=== PATIENT | female | born 1975 | race Caucasian/White ===

== ENCOUNTER 2017-05-29 12:09 | Inpatient (IN) | payer BC ==
[2017-05-29] MEDS ORDERED: ACETAMINOPHEN TAB 500 MG TAB PO STA (13:18)
[2017-05-29] MEDS ORDERED: SODIUM CHLORIDE 0.9% 500 ML IV STA (13:19)
--- NOTE | 2017-05-29 13:21 | ED ---
General Adult HPI - General Chief complaint: Abdominal Pain Stated complaint: Abd/Back Pain Time Seen by Provider: 05/29/17 12:30 Source: patient, RN notes reviewed Mode of arrival: ambulatory Limitations: no limitations - History of Present Illness Initial comments: This is a 42-year-old female presents emergency Department complaining of epigastric abdominal pain which radiates to her back per patient states she has a history of pancreatitis and hasn't had it for a year but this feels very similar to her Ybarra taste in the past. Patient denies any vomiting but states she is mildly nauseated. Patient states the pain started last evening but it's a little less today but she was concerned that maybe it would get worse so she wanted to come in and be evaluated. Patient denies any fever or chills. Patient denies any chest pain difficulty breathing shortness of breath. Patient denies any dysuria hematuria urinary frequency. - Related Data Home Medications Medication Instructions Recorded Confirmed Ibuprofen [Motrin] 600 mg PO Q6HR PRN 03/10/16 05/29/17 Frovatriptan Succinate [Frova] 2.5 mg PO DAILY PRN 05/29/17 05/29/17 Topiramate [Topamax] 25 mg PO HS 05/29/17 05/29/17 Allergies Allergy/AdvReac Type Severity Reaction Status Date / Time amoxicillin [Amoxicillin] AdvReac Vomiting Verified 05/29/17 13:24 morphine AdvReac Vomiting Verified 05/29/17 13:24 Review of Systems ROS Statement: Those systems with pertinent positive or pertinent negative responses have been documented in the HPI. ROS Other: All systems not noted in ROS Statement are negative. Past Medical History Past Medical History: Asthma, Pneumonia Additional Past Medical History / Comment(s): migraine, pancreatits History of Any Multi-Drug Resistant Organisms: None Reported Past Surgical History: Appendectomy, Uterine Ablation Additional Past Surgical History / Comment(s): whipple Past Anesthesia/Blood Transfusion Reactions: Previous Problems w/ Anesthesia, Postoperative Nausea & Vomiting (PONV) Additional Past Anesthesia/Blood Transfusion Reaction / Comment(s): difficulty waking up, low heart rate Past Psychological History: No Psychological Hx Reported Smoking Status: Never smoker Past Alcohol Use History: Rare Past Drug Use History: None Reported - Past Family History Mother Additional Family Medical History / Comment(s): paternal grandmother from a heart attack. maternal grandmother also had heart problems General Exam - General Exam Comments Initial Comments: GENERAL: Patient is well-developed and well-nourished. Patient is nontoxic and well- hydrated and is in mild distress. ENT: Neck is soft and supple. No significant lymphadenopathy is noted. Oropharynx is clear. Moist mucous membranes. Neck has full range of motion without eliciting any pain. EYES: The sclera were anicteric and conjunctiva were pink and moist. Extraocular movements were intact and pupils were equal round and reactive to light. Eyelids were unremarkable. PULMONARY: Unlabored respirations. Good breath sounds bilaterally. No audible rales rhonchi or wheezing was noted. CARDIOVASCULAR: There is a regular rate and rhythm without any murmurs gallops or rubs. ABDOMEN: Patient has tenderness in epigastric region SKIN: Skin is clear with no lesions or rashes and otherwise unremarkable. NEUROLOGIC: Patient is alert and oriented x3. Cranial nerves II through XII are grossly intact. Motor and sensory are also intact. Normal speech, volume and content. Symmetrical smile. MUSCULOSKELETAL: Normal extremities with adequate strength and full range of motion. LYMPHATICS: No significant lymphadenopathy is noted PSYCHIATRIC: Normal psychiatric evaluation. Normal interpersonal interactions appears functionally intact in deals appropriately with others. No signs of depression. No signs of anxiety. Limitations: no limitations Course Vital Signs 05/29/17 12:26 Temperature 98.3 F Pulse Rate 106 H Respiratory 18 Rate Blood Pressure 114/73 O2 Sat by Pulse 99 Oximetry Medical Decision Making - Lab Data Result diagrams: 05/29/17 13:06 05/29/17 13:06 Lab Results 05/29/17 05/29/17 05/29/17 Range/Units 13:06 13:06 13:06 WBC 8.0 (3.8-10.6) k/uL RBC 4.39 (3.80-5.40) m/uL Hgb 14.2 (11.4-16.0) gm/dL Hct 40.4 (34.0-46.0) % MCV 92.0 (80.0-100.0) fL MCH 32.2 (25.0-35.0) pg MCHC 35.0 (31.0-37.0) g/dL RDW 12.6 (11.5-15.5) % Plt Count 198 (150-450) k/uL Neutrophils % 69 % Lymphocytes % 22 % Monocytes % 6 % Eosinophils % 2 % Basophils % 1 % Neutrophils # 5.5 (1.3-7.7) k/uL Lymphocytes # 1.8 (1.0-4.8) k/uL Monocytes # 0.5 (0-1.0) k/uL Eosinophils # 0.1 (0-0.7) k/uL Basophils # 0.0 (0-0.2) k/uL Sodium 142 (137-145) mmol/L Potassium 4.5 (3.5-5.1) mmol/L Chloride 108 H (98-107) mmol/L Carbon Dioxide 25 (22-30) mmol/L Anion Gap 9 mmol/L BUN 14 (7-17) mg/dL Creatinine 0.88 (0.52-1.04) mg/dL Est GFR (MDRD) Af Amer >60 (>60 ml/min/1.73 sqM) Est GFR (MDRD) Non-Af >60 (>60 ml/min/1.73 sqM) Glucose 87 (74-99) mg/dL Calcium 9.3 (8.4-10.2) mg/dL Total Bilirubin 0.7 (0.2-1.3) mg/dL AST 23 (14-36) U/L ALT 20 (9-52) U/L Alkaline Phosphatase 44 (38-126) U/L Total Protein 6.8 (6.3-8.2) g/dL Albumin 4.4 (3.5-5.0) g/dL Amylase 958 H* (30-110) U/L Lipase 7176 H (23-300) U/L Urine Color Yellow Urine Appearance Turbid H (Clear) Urine pH 8.0 (5.0-8.0) Ur Specific [place] 1.019 (1.001-1.035) Urine Protein Trace H (Negative) Urine Glucose (UA) Negative (Negative) Urine Ketones Negative (Negative) Urine Blood Negative (Negative) Urine Nitrite Negative (Negative) Urine Bilirubin Negative (Negative) Urine Urobilinogen <2.0 (<2.0) mg/dL Ur Leukocyte Esterase Negative (Negative) Urine Bacteria Rare H (None) /hpf Urine Mucus Rare H (None) /hpf Urine Yeast (Budding) Many H (None) /hpf Disposition Clinical Impression: Acute pancreatitis Disposition: ADMITTED IP TO THIS HOSP Referrals: Michele Proctor MD [Primary Care Provider] - 1-2 days Time of Disposition: 14:53
[2017-05-29 13:40] LABS: Basophils % (A) 1 %; CH 31.8; CHCM 34.7; Eosinophils # (A) 0.1 k/uL (0-0.7); Eosinophils % (A) 2 %; HCT 40.4 % (34.0-46.0); HDW 2.49; HGB 14.2 gm/dL (11.4-16.0); Luc # (Auto) 0.07; Luc % (Auto) 1; Lymphocytes # (A) 1.8 k/uL (1.0-4.8); Lymphocytes % (A) 22 %; MCH 32.2 pg (25.0-35.0); Mean Platelet Volume 7.3; Monocytes # (A) 0.5 k/uL (0-1.0); Monocytes % (A) 6 %; Neutrophils # (A) 5.5 k/uL (1.3-7.7); Neutrophils % (A) 69 %; RBC 4.39 m/uL (3.80-5.40); RDW 12.6 % (11.5-15.5); WBC (Perox) 8.38
[2017-05-29 13:48] LABS: Appearance,Urine Turbid (Clear); Bacteria,Urine Rare /hpf; Bilirubin,Urine Negative (Negative); Glucose,Urine (UA) Negative (Negative); Ketones,Urine Negative (Negative); Leukocyte Esterase,Urine Negative (Negative); Mucus,Urine Rare /hpf; Nitrite,Urine Negative (Negative); Particle Count 10918; Protein,Urine Trace (Negative); Specific Gravity,Urine 1.019 (1.001-1.035); UA Billing (MACRO vs. MICRO) MICRO; Urobilinogen,Urine <2.0 mg/dL (<2.0)
[2017-05-29 13:50] LABS: ALT 20 U/L (9-52); AST 23 U/L (14-36); Alkaline Phosphatase 44 U/L (38-126); Anion Gap 9 mmol/L; Blood Urea Nitrogen 14 mg/dL (7-17); Calcium 9.3 mg/dL (8.4-10.2); Carbon Dioxide 25 mmol/L (22-30); Chloride 108 mmol/L (98-107); Glucose 87 mg/dL (74-99); Non-African American GFR(MDRD) >60 (>60 ml/min/1.73 sqM); Potassium 4.5 mmol/L (3.5-5.1); Sodium 142 mmol/L (137-145); Total Bilirubin 0.7 mg/dL (0.2-1.3); Total Protein 6.8 g/dL (6.3-8.2)
[2017-05-29 14:06] LABS: Amylase 958 U/L (30-110)
[2017-05-29] MEDS ORDERED: SODIUM CHLORIDE 0.9% 1,000 ML IV ONE (14:54)
[2017-05-29] MEDS ORDERED: HYDROmorphone 1 MG/ML 1 ML SYRINGE IVP PRN (15:10)
[2017-05-29] MEDS ORDERED: ONDANSETRON 4 MG/2 ML VIAL IVP PRN (15:10)
[2017-05-29 15:36] VITALS: BMI 20.7
[2017-05-29] MEDS ORDERED: ACETAMINOPHEN TAB 500 MG TAB PO PRN (16:54)
[2017-05-29] MEDS ORDERED: Acetaminophen-Codeine 300-30mg TAB PO PRN (17:51)
[2017-05-29 18:35] LABS: INR 1.1 (<1.2); Prothrombin Time 10.7 sec (9.0-12.0)
[2017-05-29] MEDS: ESOMEPRAZOLE 20 MG in SODIUM CHLORIDE 0.9% 50 ML IVPB SCH (18:54)
--- NOTE | 2017-05-29 19:14 | P.CNPUL ---
History of Present Illness Consult date: 05/29/17 Requesting physician: Jodi Srivastava Chief complaint: acute pancreatitis History of present illness: This is a 42-year-old female, quite familiar to my service, patient is known to have history of chronic pancreatitis. She was seen by a pancreatic surgeon at [facility] 3 years back, and she was found to have some pancreatic lesions which were benign but felt to be precursors for potential malignancy. Patient underwent Whipple's procedure, and the purpose of the Whipple's was to prevent recurrent chronic pancreatitis, and to excise the suspicious lesions on the pancreas which were again benign but potentially transformed to malignancy in the future. Since then, the patient always had elevated enzymes, but for the last year and a half she has been relatively asymptomatic. Patient presented to the ER yesterday planing of 1 day history of severe abdominal pain , no nausea, no vomiting, no fever, no chills, no shortness of breath, no dysuria, no frequency, no hematuria, no diarrhea, but the patient is known to have history of chronic constipation. Her migraine cephalgia has been acting up and she was recently seen by a neurologist who recommended Maxalt however her prescription has not been filled yet. Today the patient is complaining of abdominal pain and symptoms of migraine cephalgia. Otherwise patient is relatively asymptomatic. Review of Systems 14 point review of systems were obtained, please refer to pertinent positives and negatives as per HPI. Past Medical History Past Medical History: Asthma, Pneumonia Additional Past Medical History / Comment(s): migraine, pancreatitis History of Any Multi-Drug Resistant Organisms: None Reported Past Surgical History: Appendectomy, Uterine Ablation Additional Past Surgical History / Comment(s): whipple Past Anesthesia/Blood Transfusion Reactions: Previous Problems w/ Anesthesia, Postoperative Nausea & Vomiting (PONV) Additional Past Anesthesia/Blood Transfusion Reaction / Comment(s): difficulty waking up, low heart rate Past Psychological History: No Psychological Hx Reported Smoking Status: Never smoker Past Alcohol Use History: Rare Past Drug Use History: None Reported - Past Family History Mother Additional Family Medical History / Comment(s): paternal grandmother from a heart attack. maternal grandmother also had heart problems Medications and Allergies Home Medications Medication Instructions Recorded Confirmed Type Ibuprofen [Motrin] 600 mg PO Q6HR PRN 03/10/16 05/29/17 History Topiramate [Topamax] 25 mg PO HS 05/29/17 05/29/17 History Allergies Allergy/AdvReac Type Severity Reaction Status Date / Time amoxicillin [Amoxicillin] AdvReac Vomiting Verified 05/29/17 13:24 morphine AdvReac Vomiting Verified 05/29/17 13:24 Physical Exam Vitals: Vital Signs Temp Pulse Pulse Resp BP BP Pulse Ox 05/29/17 15:43 98.1 F 70 18 118/57 99 05/29/17 15:00 98 F 98 18 106/61 98 05/29/17 12:26 98.3 F 106 H 18 114/73 99 Intake and Output 05/29/17 05/29/17 05/29/17 06:59 14:59 22:59 Intake Total 510 Balance 510 Intake: Amount of Fluid Infused ( 510 ml) Other: Voiding Method Toilet Weight 59.874 kg 59.874 kg Patient Weight 05/30/17 06:59 Weight 59.874 kg Physical Exam: Revealed a 42-year-old female in no distress. HEENT:[Neck is supple.] [No neck masses.] [No thyromegaly.] [No JVD.] Chest: [Clear throughout, no crackles, no rhonchi, no wheezes.] Cardiac Exam: [Normal S1 and S2, no S3 gallop, no murmur.] Abdomen: [Soft, slightly tender to palpation,, no megaly, no rebound, no guarding, Extremities: [No clubbing, no edema, no cyanosis.] Neurological Exam: [No focal neurologic deficit.] Results - Laboratory Findings CBC and BMP: 05/29/17 13:06 05/29/17 13:06 PT/INR, D-dimer PT 10.7 sec (9.0-12.0) 05/29/17 18:14 INR 1.1 (<1.2) 05/29/17 18:14 Abnormal lab findings: Abnormal Labs 05/29/17 05/29/17 13:06 13:06 Chloride 108 H Amylase 958 H* Lipase 7176 H Urine Appearance Turbid H Urine Protein Trace H Urine Bacteria Rare H Urine Mucus Rare H Urine Yeast (Budding) Many H Assessment and Plan Plan: Impression: 1 acute, on chronic pancreatitis, recurrent. 2 history of Whipple's procedure 3 chronic migraine cephalgia 4 history of mild intermittent bronchial asthma Recommendation: Agree with the present treatment plan, mostly supportive and conservative measures, no need for CT of the abdomen at this point, patient is scheduled to have an MRI in the near future at [facility], and this will be done on outpatient basis. However I believe on ultrasound of the abdomen may be indicated and will continue to follow. Keep patient nothing by mouth for now, continue to monitor her enzymes, possible discharge planning in the next 2 days. Time with Patient: Greater than 30
[2017-05-29] MEDS: KETOROLAC 30 MG/ML 1 ML VIAL IVP PRN (19:44)
[2017-05-29] MEDS ORDERED: TOPIRAMATE 25 MG TAB PO SCH (21:00)
[2017-05-29] MEDS: HEPARIN SODIUM,PORCINE 5,000 UNIT/ML 1 ML VIAL SQ SCH (21:30)
[2017-05-29] MEDS ORDERED: MAXALT 10 MG PO PRN (23:41)
[2017-05-30] MEDS: SODIUM CHLORIDE 0.9% 1,000 ML IV SCH ×3 (05:32→10:19)
[2017-05-30 07:33] LABS: Basophils % (A) 1 %; CH 31.6; CHCM 33.4; Eosinophils # (A) 0.2 k/uL (0-0.7); Eosinophils % (A) 4 %; HCT 34.7 % (34.0-46.0); HDW 2.48; HGB 11.6 gm/dL (11.4-16.0); Luc # (Auto) 0.11; Luc % (Auto) 2; Lymphocytes # (A) 2.1 k/uL (1.0-4.8); Lymphocytes % (A) 44 %; MCH 31.8 pg (25.0-35.0); MCHC 33.5 g/dL (31.0-37.0); MCV 94.8 fL (80.0-100.0); Mean Platelet Volume 7.2; Monocytes # (A) 0.3 k/uL (0-1.0); Monocytes % (A) 6 %; Neutrophils # (A) 2.2 k/uL (1.3-7.7); Neutrophils % (A) 44 %; RBC 3.66 m/uL (3.80-5.40); RDW 12.7 % (11.5-15.5); WBC 4.9 k/uL (3.8-10.6); WBC (Perox) 5.03
[2017-05-30 07:55] LABS: ALT 23 U/L (9-52); AST 16 U/L (14-36); Alkaline Phosphatase 35 U/L (38-126); Amylase 270 U/L (30-110); Anion Gap 7 mmol/L; Blood Urea Nitrogen 12 mg/dL (7-17); Calcium 8.2 mg/dL (8.4-10.2); Carbon Dioxide 19 mmol/L (22-30); Chloride 114 mmol/L (98-107); Cholesterol 137 mg/dL (<200); Glucose 63 mg/dL (74-99); HDL Cholesterol 45 mg/dL (40-60); Non-African American GFR(MDRD) >60 (>60 ml/min/1.73 sqM); Potassium 3.7 mmol/L (3.5-5.1); Sodium 140 mmol/L (137-145); Total Bilirubin 0.6 mg/dL (0.2-1.3); Total Protein 5.2 g/dL (6.3-8.2); Triglycerides 62 mg/dL (<150)
--- NOTE | 2017-05-30 08:53 | US ---
EXAMINATION TYPE: US abdomen complete DATE OF EXAM: 05/30/2017 COMPARISON: CT 11/09/2014 & US 11/08/2014 CLINICAL HISTORY: pancreatitis/recurrent. Recurrent pancreatitis, history of whipple procedure and ap pendectomy EXAM MEASUREMENTS: Liver Length: 13.9 cm Gallbladder Wall: surgically absent CBD: 0.3 cm Spleen: 9.9 cm Right Kidney: 10.0 x 4.7 x 5.1 cm Left Kidney: 10.2 x 4.9 x 4.8 cm Pancreas: wnl in its visualized portions. Liver: wnl Gallbladder: surgically absent Evidence for sonographic Aggarwal's sign: yes CBD: visualized portions wnl, limited by overlying bowel gas Spleen: visualized portions wnl, limited by rib shadowing and overlying bowel gas Right Kidney: visualized portions wnl, inferior pole limited by overlying bowel gas Left Kidney: visualized portions wnl, limited by rib shadowing and overlying bowel gas Upper IVC: wnl Abd Aorta: wnl There is no ascites. The liver is homogenous. The intrahepatic portion of the IVC and proximal abdominal aorta are within normal limits, common hepatic duct is unremarkable. The visualized portions of the pancreas are cassius ogenous. The spleen is unremarkable. Kidneys are symmetric and free of hydronephrosis. No renal le sions are seen. IMPRESSION: No evident complication of pancreatitis, status post cholecystectomy
--- NOTE | 2017-05-30 09:51 | HP ---
CHIEF COMPLAINT: Abdominal pain. HISTORY OF PRESENT ILLNESS: This 42-year-old woman with the past medical history of asthma, history of migraines, recurrent pancreatitis post Whipple's procedure being followed by Dr. Proctor in the outpatient setting, is admitted with abdominal pain in upper abdomen and back area. The patient had a migraine recently. The patient is being by [facility] and patient also had IPMN. The patient was also seen by neurology recently and Topamax and Maxalt was also recommended recently. No fever or rigors. History of headache. No loss of consciousness or seizures. PAST MEDICAL HISTORY: History of recurrent pancreatitis, asthma, pneumonia, history of migraine, history of IPMN with Whipple's procedure. MEDICATIONS PRIOR TO ADMISSION: 1. Topamax 25 mg q.h.s. 2. Motrin 600 mg q6h p.r.n. ALLERGIES: AMOXICILLIN, MORPHINE. FAMILY HISTORY: Heart disease in paternal and maternal grandmothers. SOCIAL HISTORY: The patient is a teacher. Occasional alcohol, no history of smoking. REVIEW OF SYSTEMS: ENT: No diminished hearing or diminished vision. CARDIOVASCULAR: No angina, no palpitations. RESPIRATORY: No cough or hemoptysis. GI: As mentioned earlier. : No dysuria. NERVOUS SYSTEM: No numbness or weakness. Alert and oriented. MUSCULOSKELETAL: As mentioned earlier. HEMATOLOGY: None. ENDOCRINE: No diabetes or hypothyroidism. CONSTITUTIONAL: As mentioned earlier. PSYCHIATRIC: As mentioned earlier. PHYSICAL EXAMINATION: Alert and oriented x3. Pulse is 70, blood pressure 118/ 57, respirations 18, temperature 98.0, pulse ox 99% on room air. HEENT: Conjunctivae normal. NECK: No JVD. CARDIOVASCULAR: S1/S2. LUNGS: Diminished breath sounds at the bases. No rhonchi, no crackles. ABDOMEN: Soft. Mild diffuse tenderness. No guarding. No mass palpable. LEGS: No swelling. NERVOUS SYSTEM: Higher functions normal. Moves all four limbs. LYMPHATICS: No lymph node palpable in neck or axillae. SKIN: No rash. LABS: CBC within normal limits. Amylase 958 and lipase 7176. ASSESSMENT: 1. Acute pancreatitis. 2. History of recurrent acute pancreatitis. 3. History of intraductal papillary mucinous neoplasm. 4. History of Whipple's procedure. 5. History of migraine. 6. History of asthma. 7. History of pneumonia. 8. History of appendectomy. RECOMMENDATIONS AND DISCUSSION: In this 42-year-old woman who presented with multiple complex medical issues, will monitor the patient closely, continue current medication, continue symptomatic treatment. The patient is NPO. Otherwise, I will recommend repeat labs, gastroenterology consultation, symptomatic treatment for the pain, DVT prophylaxis. Guarded prognosis because of multiple complex medical issues. Further recommendations to follow. PEDROD
[2017-05-30] MEDS: HEPARIN SODIUM,PORCINE 5,000 UNIT/ML 1 ML VIAL SQ SCH (10:18)
[2017-05-30] MEDS: ESOMEPRAZOLE 20 MG in SODIUM CHLORIDE 0.9% 50 ML IVPB SCH (10:19)
[2017-05-30] MEDS: KETOROLAC 30 MG/ML 1 ML VIAL IVP PRN (10:25)
--- NOTE | 2017-05-30 11:11 | CONS ---
DATE OF CONSULTATION: 05/30/2017 REASON FOR CONSULTATION: Acute pancreatitis. HISTORY OF PRESENT ILLNESS: The patient is a 42-year-old pleasant white female with history of acute recurrent pancreatitis since May of 2014. She was investigated at [facility] by Dr. Alvarenga/Dr. Vasquez and was diagnosed with IPMN and subsequently underwent Whipple's procedure in July of 2014. She did well for two years. She had another attack of pancreatitis in March of 2016 at which time she followed up with Dr. Alvarenga and had an MRA of the pancreas that according to her was unremarkable. She was doing reasonably well. She started having this epigastric discomfort two days ago associated with some nausea and vomiting and came to the emergency room and was noted to have elevated amylase and lipase consistent with acute pancreatitis. She reports no fever or chills. This morning she is feeling much better. Abdominal pain has resolved. PAST MEDICAL HISTORY: Significant for asthma and acute recurrent pancreatitis. PAST SURGICAL HISTORY: Whipple's surgery in July of 2014, appendectomy, uterine ablation. MEDICATIONS AT HOME: Motrin, Topamax. ALLERGIES: PENICILLIN AND MORPHINE. SOCIAL HISTORY: No smoking, no alcohol use. FAMILY HISTORY: Unremarkable. REVIEW OF SYSTEMS: CARDIOPULMONARY: No chest pain or shortness of breath. GENITOURINARY: No dysuria or hematuria. MUSCULOSKELETAL: Unremarkable. SKIN: Unremarkable. ENDOCRINE: Unremarkable. PSYCHIATRIC: Unremarkable. NEUROLOGIC: Unremarkable. ENT: Vision unremarkable. CONSTITUTIONAL: No recent weight loss. No fever, chills, night sweats. FAMILY HISTORY: Paternal grandmother had NM. Maternal grandmother has coronary artery disease. PHYSICAL EXAMINATION: She appears comfortable, no apparent distress. VITAL SIGNS: Stable. Blood pressure is 118/57, pulse rate 70 per minute and febrile. HEENT: Unremarkable. Conjunctivae are pink. Sclerae anicteric. Oral cavity, no lesions. NECK: No JVD or lymph node enlargement. CHEST: Clear to auscultation. HEART: Regular rate and rhythm. ABDOMEN: Soft. There was mild tenderness in the epigastric area. Bowel sounds are positive. No organomegaly. EXTREMITIES: No pedal edema. SKIN: No rashes. NEURO: Alert and oriented x3. No focal deficits. LABS: WBC 8, hemoglobin 14.2, platelets are normal. Amylase was 958 and lipase is 7176. This morning amylase is 270, lipase is 617. AST, ALT, bili and alkaline phosphatase are within normal limits. Triglyceride is 62. Total cholesterol 137. Hemoglobin today is 11.6, WBC 4.9 and platelets of 147. IMPRESSION: Acute recurrent pancreatitis. She is status post Whipple's surgery for intraductal papillary mucinous neoplasm of the pancreas in July of 2014. Since then she had two attacks of pancreatitis, the last one was in March of 2016. This attack appears to be very mild and her amylase and lipase have significantly improved from yesterday. Clinically she is doing much better. RECOMMENDATIONS: 1. Start on clear liquid diet. 2. Repeat labs in the morning. 3. She can be discharged home later today or tomorrow. 4. Advised to follow up with Dr. Alvarenga/Dr. Vasquez for further workup. Thank you for this consultation. JUAN
[2017-05-30 11:31] VITALS: BP 145/68; PULSE 76; RESP 18; TEMP 98.2
--- NOTE | 2017-05-30 11:51 | P.PN ---
Subjective Principal diagnosis: Acute pancreatitis This is a 42-year-old female, quite familiar to my service, patient is known to have history of chronic pancreatitis. She was seen by a pancreatic surgeon at [facility] 3 years back, and she was found to have some pancreatic lesions which were benign but felt to be precursors for potential malignancy. Patient underwent Whipple's procedure, and the purpose of the Whipple's was to prevent recurrent chronic pancreatitis, and to excise the suspicious lesions on the pancreas which were again benign but potentially transformed to malignancy in the future. Since then, the patient always had elevated enzymes, but for the last year and a half she has been relatively asymptomatic. Patient presented to the ER yesterday planing of 1 day history of severe abdominal pain , no nausea, no vomiting, no fever, no chills, no shortness of breath, no dysuria, no frequency, no hematuria, no diarrhea, but the patient is known to have history of chronic constipation. Her migraine cephalgia has been acting up and she was recently seen by a neurologist who recommended Maxalt however her prescription has not been filled yet. Today the patient is complaining of abdominal pain and symptoms of migraine cephalgia. Otherwise patient is relatively asymptomatic. Patient was reevaluated today on 05/30/2017, feeling much better, abdominal pain is almost 90% resolved, migraine was controlled with Maxalt, pancreatic enzymes are normalizing, and the patient is wishing to go home. No active symptoms at this point today, she believes that she may do even much better if she goes home. Hence the patient will be cleared for discharge planning today. Objective - Vital Signs Vital signs: Vital Signs Temp 98.2 F 05/30/17 07:00 Pulse 76 05/30/17 07:00 Resp 18 05/30/17 07:00 BP 145/68 05/30/17 07:00 Pulse Ox 96 05/30/17 07:00 Intake & Output 05/29/17 05/30/17 05/30/17 18:59 06:59 18:59 Intake Total 510 500 Balance 510 500 Weight 59.874 kg Intake: Amount of Fluid Infused ( 510 ml) Intake, IV Titration 500 Amount Sodium Chloride 0.9% 1, 500 000 ml @ 125 mls/hr IV . Q8H LUL[facility] Rx#:[id number] Oral 0 Other: Voiding Method Toilet Toilet Toilet # Voids 1 - Exam Physical Exam: Revealed a 42-year-old female in no distress. HEENT:[Neck is supple.] [No neck masses.] [No thyromegaly.] [No JVD.] Chest: [Clear throughout, no crackles, no rhonchi, no wheezes.] Cardiac Exam: [Normal S1 and S2, no S3 gallop, no murmur.] Abdomen: [Soft, nontender, no megaly, no rebound, no guarding, normal bowel sounds.] Extremities: [No clubbing, no edema, no cyanosis.] Neurological Exam: [No focal neurologic deficit.] - Labs CBC & Chem 7: 05/30/17 06:41 05/30/17 06:41 Labs: Abnormal Lab Results - Last 24 Hours (Table) 05/29/17 05/29/17 05/30/17 Range/Units 13:06 13:06 06:41 RBC 3.66 L (3.80-5.40) m/uL Plt Count 147 L (150-450) k/uL Chloride 108 H (98-107) mmol/L Carbon Dioxide (22-30) mmol/L Glucose (74-99) mg/dL Calcium (8.4-10.2) mg/dL Alkaline Phosphatase (38-126) U/L Total Protein (6.3-8.2) g/dL Albumin (3.5-5.0) g/dL Amylase 958 H* (30-110) U/L Lipase 7176 H (23-300) U/L Urine Appearance Turbid H (Clear) Urine Protein Trace H (Negative) Urine Bacteria Rare H (None) /hpf Urine Mucus Rare H (None) /hpf Urine Yeast (Budding) Many H (None) /hpf 05/30/17 Range/Units 06:41 RBC (3.80-5.40) m/uL Plt Count (150-450) k/uL Chloride 114 H (98-107) mmol/L Carbon Dioxide 19 L (22-30) mmol/L Glucose 63 L (74-99) mg/dL Calcium 8.2 L (8.4-10.2) mg/dL Alkaline Phosphatase 35 L (38-126) U/L Total Protein 5.2 L (6.3-8.2) g/dL Albumin 3.1 L (3.5-5.0) g/dL Amylase 270 H (30-110) U/L Lipase 617 H (23-300) U/L Urine Appearance (Clear) Urine Protein (Negative) Urine Bacteria (None) /hpf Urine Mucus (None) /hpf Urine Yeast (Budding) (None) /hpf Assessment and Plan Plan: Impression: 1 acute, on chronic pancreatitis, recurrent. 2 history of Whipple's procedure 3 chronic migraine cephalgia 4 history of mild intermittent bronchial asthma Recommendation: Agree with discharge planning today, follow up on outpatient basis, patient is to keep her appointment with the pancreatic surgeon as scheduled. Ultrasound was discussed with the patient and her at bedside. Time with Patient: Less than 30
--- NOTE | 2017-06-02 13:12 | DS ---
FINAL DIAGNOSES: 1. Acute pancreatitis. 2. History of recurrent acute pancreatitis. 3. History of intraductal papillary mucinous neoplasm. 4. Status post Whipple's procedure. 5. History of migraine. 6. History of asthma. 7. History of pneumonia. 8. History of appendectomy. DISCHARGE DISPOSITION: The patient will be discharged in stable condition with guarded prognosis. HISTORY OF PRESENT ILLNESS: This is a 42-year-old woman with the past medical history of multiple medical problems as mentioned earlier, being followed by Dr. Proctor in the outpatient setting, admitted with abdominal pain and features of acute pancreatitis. The patient was treated symptomatically. Amylase and lipase improved. Dr. Bar saw the patient. On exam, vitals are stable. CARDIOVASCULAR: S1/S2. ABDOMEN: Soft. Minimal tenderness. No guarding, no rigidity. NERVOUS SYSTEM: No focal deficits. LABS: WBC 4.9, hemoglobin 11. Sodium 142, potassium 3.7. Amylase is 270 and lipase is 617. DIET: Soft, low fat, bland. Follow up with Dr. Proctor in 1-2 days with CBC, BMP, amylase and lipase. Follow up with [facility] as recommended. MEDICATIONS: 1. Tylenol p.r.n. 2. Motrin p.r.n. 3. Maxalt 10 mg p.o. p.r.n. 4. Topamax 25 mg q.h.s. 5. Protonix 40 mg p.o. daily. MTDD
== END 2017-05-30 14:54 | disposition home or self-care (01) | DRG 440 ==
LOC: EC 12:09 → 5MS5E 14:54
PROVIDERS: ADMIT Hospitalist; ATTEND Hospitalist
DX: K85.90 Acute pancreatitis without necrosis or infection, unspecified (principal); G43.909 Migraine, unspecified, not intractable, without status migrainosus; Z87.01 Personal history of pneumonia (recurrent); Z82.49 Family history of ischemic heart disease and other diseases of the circulatory system; K86.1 Other chronic pancreatitis; Z90.411 Acquired partial absence of pancreas; Z79.899 Other long term (current) drug therapy; Z88.0 Allergy status to penicillin
CPT/HCPCS: 36415; 76700; 80053; 80061; 81001; 82150; 83690; 85025; 85610; 85652; 86140; 96360; 99284

== ENCOUNTER → 2017-05-31 | Outpatient (CLI) | payer BC ==
[2017-05-31 10:52] LABS: Basophils % (A) 1 %; CH 31.9; CHCM 34.1; Eosinophils # (A) 0.1 k/uL (0-0.7); Eosinophils % (A) 3 %; HCT 38.2 % (34.0-46.0); HGB 12.5 gm/dL (11.4-16.0); Luc # (Auto) 0.05; Luc % (Auto) 1; Lymphocytes # (A) 1.4 k/uL (1.0-4.8); Lymphocytes % (A) 32 %; MCH 30.8 pg (25.0-35.0); MCHC 32.8 g/dL (31.0-37.0); MCV 93.7 fL (80.0-100.0); Mean Platelet Volume 8.5; Monocytes # (A) 0.3 k/uL (0-1.0); Monocytes % (A) 6 %; Neutrophils # (A) 2.4 k/uL (1.3-7.7); Neutrophils % (A) 57 %; RBC 4.08 m/uL (3.80-5.40); RDW 12.9 % (11.5-15.5); WBC 4.2 k/uL (3.8-10.6)
[2017-05-31 11:02] LABS: ALT 31 U/L (9-52); AST 21 U/L (14-36); Alkaline Phosphatase 42 U/L (38-126); Anion Gap 11 mmol/L; Blood Urea Nitrogen 9 mg/dL (7-17); Calcium 9.5 mg/dL (8.4-10.2); Carbon Dioxide 22 mmol/L (22-30); Chloride 110 mmol/L (98-107); Glucose 125 mg/dL (74-99); Non-African American GFR(MDRD) >60 (>60 ml/min/1.73 sqM); Potassium 4.1 mmol/L (3.5-5.1); Sodium 143 mmol/L (137-145); Total Bilirubin 0.7 mg/dL (0.2-1.3); Total Protein 6.6 g/dL (6.3-8.2)
[2017-05-31 13:16] LABS: Amylase 86 U/L (30-110)
== END | disposition home or self-care (01) ==
LOC: LABWHC1 10:17
PROVIDERS: ATTEND Hospitalist
DX: K85.90 Acute pancreatitis without necrosis or infection, unspecified (principal)
CPT/HCPCS: 36415; 80053; 82150; 83690; 85025

== ENCOUNTER 2018-02-15 18:10 | Emergency (ER) | payer OTHER, BC ==
[2018-02-15 18:33] VITALS: TEMP 97.8
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
[2018-02-15] MEDS ORDERED: IBUPROFEN 600 MG TAB PO STA (19:52)
[2018-02-15 20:05] VITALS: BP 114/81; PULSE 69; RESP 18
== END 2018-02-15 20:05 | disposition home or self-care (01) ==
LOC: EC 18:10
DX: R51 Headache (principal); M54.2 Cervicalgia; Z86.69 Personal history of other diseases of the nervous system and sense organs; R40.2412 Glasgow coma scale score 13-15, at arrival to emergency department; Z79.899 Other long term (current) drug therapy; Z88.5 Allergy status to narcotic agent; Z88.0 Allergy status to penicillin; V89.2XXA Person injured in unspecified motor-vehicle accident, traffic, initial encounter; Y92.410 Unspecified street and highway as the place of occurrence of the external cause
CPT/HCPCS: 70450; 72125; 99284

== ENCOUNTER → 2018-11-03 | Outpatient (CLI) | payer BC ==
--- NOTE | 2018-11-04 08:28 | MM ---
Reason for exam: clinical finding. History: Benign excisional biopsy of the left breast, 2012. Took hormonal contraceptives beginning at age 17. Physical Findings: Nurse Summary: 4-5cm nodule in the the right breast at 10 o'clock, a 1cm nodule in the left breast at 12 o'clock, a 1cm nodule in the left breast at 1 o'clock and a 2cm nodule in the left breast at 2 o'clock (nurse dw). MG 3D Diag Mammo W/Cad DIANA Bilateral CC and MLO view(s) were taken. No prior studies available for comparison. There are benign appearing round oval circumscribed bilateral masses. No suspicious abnormality. These results were verbally communicated with the patient and result sheet given to the patient on 11/03/18. ASSESSMENT: Benign, BI-RAD 2 RECOMMENDATION: Routine screening mammogram of both breasts in 1 year.
--- NOTE | 2018-11-04 08:35 | USB ---
Reason for exam: clinical finding. History: Benign excisional biopsy of the left breast, 2012. Took hormonal contraceptives beginning at age 17. US Breast BILAT Right complete breast ultrasound includes all four quadrants, the retroareolar region and axilla. Finding demonstrates several cystic lesions measuring 0.6 x 0.4 x 0.7cm at 3 o'clock, 0.6 x 0.4 x 0.5cm at 7 o'clock, 0.6 x 0.5 x 0.6cm at 8 o'clock, 3.5 x 2.3 x 4.0cm at 10 o'clock and 0.5 x 0.5 x 0.5cm at 11 o'clock and a 0.5 x 0.4 x 0.7cm mixed lesion at 7 o'clock increased through transmission, complicated cyst. Left complete breast ultrasound includes all four quadrants, the retroareolar region and axilla. Finding demonstrates several cystic lesions measuring 3.0 x 1.5 x 2.7cm cystic lesion at 1 o'clock, 0.5 x 0.4 x 0.4cm at 2 o'clock, 1.0 x 0.5 x 0.8cm cluster at 3 o'clock, 0.4 x 0.2 x 0.5cm at 8 o'clock and 0.7 x 0.4 x 0.7cm at 11 o'clock and a 0.7 x 0.6 x 0.8cm mixed lesion at 10 o'clock, increased through transmission, complicated cyst. These results were verbally communicated with the patient and result sheet given to the patient on 11/03/18. ASSESSMENT: Benign, BI-RAD 2 RECOMMENDATION: Aspiration of both breasts. (if symptomatic) Called Dr. Chase with mammographic findings, doctor will call patient with results. Biopsy scheduled for 11/04/18. PRELIMINARY REPORT CALLED AND FAXED TO DR. CHASE ON 11/04/18. Routine screening mammogram of both breasts in 1 year.
== END | disposition home or self-care (01) ==
LOC: RADMAMWWP 12:38
PROVIDERS: ATTEND Obstetrics & Gynecology
DX: N63.0 Unspecified lump in unspecified breast (principal); R92.8 Other abnormal and inconclusive findings on diagnostic imaging of breast
CPT/HCPCS: 77062; 77066

== ENCOUNTER → 2018-11-04 | Day surgery (SDC) | payer BC ==
[2018-11-04 07:31] VITALS: RESP 16; BMI 19.3
[2018-11-04 09:00] VITALS: BP 117/70; PULSE 70; TEMP 97.9
--- NOTE | 2018-11-04 09:21 | USB ---
EXAMINATION TYPE: US breast aspiration ea add LT, US breast aspiration ea add LT DATE OF EXAM: 11/04/2018 COMPARISON: EXAMINATION TYPE: US breast aspiration ea add LT, US breast aspiration ea add LT DATE OF EXAM: 11/04/2018 COMPARISON: NONE CLINICAL HISTORY: R92.8 PREV ABN MAMMO.. Informed consent was obtained and all the patient's questions were answered. Standard sterile techniq ue was utilized as well as appropriate local anesthesia with 1% lidocaine and bicarbonate. At the rig ht 10:00 position and 18-gauge needle was introduced into the cyst and approximately 20 cc of greenis h fluid was obtained. Within the left breast at the 2:00 region kissing cysts are noted and approxima tely 20 cc of greenish fluid was aspirated from each site. This fluid was sent for further evaluation to cytology. IMPRESSION: Successful cyst aspiration bilaterally.
== END | disposition home or self-care (01) ==
LOC: RADUSWWP 07:06
PROVIDERS: ATTEND Obstetrics & Gynecology
DX: N60.02 Solitary cyst of left breast (principal); N60.01 Solitary cyst of right breast
CPT/HCPCS: 88108; 88305; 19000; 19001; J2001; 76942

== ENCOUNTER → 2020-07-01 | Outpatient (CLI) | payer BC ==
[2020-07-01 13:11] LABS: Basophils % (A) 1 %; Eosinophils # (A) 0.2 k/uL (0-0.7); Eosinophils % (A) 5 %; HCT 41.4 % (34.0-46.0); HGB 13.2 gm/dL (11.4-16.0); Lymphocytes # (A) 1.8 k/uL (1.0-4.8); Lymphocytes % (A) 34 %; MCH 30.4 pg (25.0-35.0); MCHC 31.9 g/dL (31.0-37.0); MCV 95.3 fL (80.0-100.0); Mean Platelet Volume 7.9; Monocytes # (A) 0.3 k/uL (0-1.0); Monocytes % (A) 5 %; Neutrophils # (A) 2.8 k/uL (1.3-7.7); Neutrophils % (A) 54 %; Platelet Count 168 k/uL (150-450); RBC 4.34 m/uL (3.80-5.40); RDW 12.5 % (11.5-15.5); WBC 5.2 k/uL (3.8-10.6)
[2020-07-01 20:21] LABS: African American GFR (CKD) 101.8 (60.0-200.0); Albumin 4.3 g/dL (3.80-4.90); Anion Gap 6.7 mmol/L (4.00-12.00); BUN/Creat Ratio 16.25 Ratio (12.00-20.00); Calcium 9.1 mg/dL (8.7-10.3); Carbon Dioxide 23.3 mmol/L (21.6-31.8); Chol/HDL Ratio 2.95; Non-African American GFR(CKD) 87.8 (60.0-200.0); Potassium 4.3 mmol/L (3.5-5.5); T4, Free (Free Thyroxine) 0.9 ng/dL (0.80-1.80); Total Protein 6.2 g/dL (6.2-8.2)
[2020-07-01 20:22] LABS: Albumin/Globulin Ratio 2.26 (1.60-3.17); Globulin 1.9 g/dL (1.6-3.3); Total Bilirubin 0.6 mg/dL (0.2-1.2)
== END | disposition home or self-care (01) ==
LOC: LABWHC1 10:36
PROVIDERS: ATTEND Internal Medicine
DX: Z00.00 Encounter for general adult medical examination without abnormal findings (principal); K86.1 Other chronic pancreatitis
CPT/HCPCS: 36415; 80053; 80061; 82150; 83690; 84439; 84443; 85025

== ENCOUNTER → 2020-12-05 | Outpatient (CLI) | payer BC ==
--- NOTE | 2020-12-05 21:27 | CT ---
EXAMINATION TYPE: CT abdomen pelvis wo con DATE OF EXAM: 12/05/2020 COMPARISON: 11/09/2014 INDICATION: chest pain post whipple procedure DLP: 541 mGycm, Automated exposure control for dose reduction was used. CONTRAST: 0 mL of Isovue 300. Study performed without Oral Contrast TECHNIQUE: Axial images were obtained from above the diaphragm to the pubic rami in the axial plane a t 5 mm thick sections. Reconstructed images are reviewed on the computer in the coronal plane. FINDINGS: Limited CT sections are obtained the lung bases. The lung bases are clear. CT ABDOMEN: Liver: Normal . Air is within the biliary tree. Spleen: Normal Pancreas: Patient is status post Whipple procedure. The body the great on the posterior wall of the s tomach is normal. The pancreatic duct at the body is 0.27 cm which is slightly prominent. Tail the pa ncreas appears within normal limits without contrast. Adrenal glands: The adrenal glands are normal. Gallbladder: Normal Kidneys: No masses are evident. No hydronephrosis is present. No cysts are present. Delayed images were obtained through the kidneys, which remain unremarkable. Aorta: Normal Inferior vena cava: Normal. CT PELVIS: There are some fluid-filled small bowel loops within the lower pelvis. Fecal debris is within the dis michelle colon. There are loops of bowel which are incompletely distended or lack oral contrast limiting t heir evaluation. Appendix: Not visualized. No dilated tubular structure inflammatory changes are evident. Urinary bladder: Normal. Genitourinary structures: Uterus appears within normal limits. Adnexa are normal. Osseous structures: No suspicious lytic or sclerotic lesions. IMPRESSIONS: 1. May be some mild ileus within the pelvis. 2. Pancreatic duct at the palpable insertion is somewhat prominent measuring 0.27 cm.
== END | disposition home or self-care (01) ==
LOC: RADCTMAIN 18:19
PROVIDERS: ATTEND Family Medicine
DX: Z48.815 Encounter for surgical aftercare following surgery on the digestive system (principal); R93.3 Abnormal findings on diagnostic imaging of other parts of digestive tract; Z90.410 Acquired total absence of pancreas
CPT/HCPCS: 74176

== ENCOUNTER → 2021-05-02 | Outpatient (CLI) | payer BC | END | disposition home or self-care (01) | CPT/HCPCS: 77062; 77066 ==

== ENCOUNTER 2021-11-01 09:43 | Emergency (ER) | payer BC ==
[2021-11-01 09:52] VITALS: RESP 18
--- NOTE | 2021-11-01 10:40 | XR ---
EXAMINATION TYPE: XR chest 2V DATE OF EXAM: 11/01/2021 10:34 AM COMPARISON: 07/26/2014 CLINICAL INDICATION:Female, 46 years old with history of Chest Pain; TECHNIQUE: Frontal and lateral views of the chest. FINDINGS: Lungs/Pleura: There is no evidence of pleural effusion, focal consolidation, or pneumothorax. Pulmonary vascularity: Unremarkable. Heart/mediastinum: Cardiomediastinal silhouette is unremarkable. Musculoskeletal: No acute osseous pathology. IMPRESSION: No acute cardiopulmonary disease/process.
[2021-11-01 11:09] LABS: Basophils % (A) 0 %; Eosinophils # (A) 0.1 k/uL (0-0.7); Eosinophils % (A) 2 %; HCT 37.6 % (34.0-46.0); HGB 13.4 gm/dL (11.4-16.0); Lymphocytes # (A) 1.3 k/uL (1.0-4.8); Lymphocytes % (A) 25 %; MCH 34.4 pg (25.0-35.0); MCHC 35.7 g/dL (31.0-37.0); MCV 96.4 fL (80.0-100.0); Mean Platelet Volume 7.8; Monocytes # (A) 0.4 k/uL (0-1.0); Monocytes % (A) 8 %; Neutrophils # (A) 3.2 k/uL (1.3-7.7); Neutrophils % (A) 64 %; Platelet Count 126 k/uL (150-450); RDW 12.4 % (11.5-15.5)
--- NOTE | 2021-11-01 11:10 | ED ---
Chest Pain HPI - General Chief Complaint: Chest Pain Stated Complaint: Chest Pain,Body Aches Time Seen by Provider: 11/01/21 10:01 Source: patient Mode of arrival: ambulatory Limitations: no limitations - History of Present Illness Initial Comments: 38-year-old female history of pancreatitis and a Whipple procedure states she was diagnosed with COVID-19 recently. She does have complaints of fever and shortness of breath some congestion and complaints of chest pain dull and achy in nature 5/10 severity over the left side of her chest. She has no history of heart disease but states that this is how she fell with the onset of her pancreatitis in the past. Patient does state that the symptoms started several days ago she's had 2 negative home past and had a positive home test this morning MD Complaint: chest pain, other - Related Data Home Medications Medication Instructions Recorded Confirmed Erenumab-Aooe [Aimovig 70 mg IM Q30D 11/03/18 11/01/21 Autoinjector] Acetaminophen Tab [Tylenol Tab] 1,000 mg PO Q6HR PRN 11/01/21 11/01/21 Ibuprofen [Motrin Ib] 400 mg PO Q8H PRN 11/01/21 11/01/21 Multivitamins, Thera [Multivitamin 1 tab PO DAILY 11/01/21 11/01/21 (formulary)] Rizatriptan Odt [Maxalt Acoustical Installer] 10 mg PO BID PRN 11/01/21 11/01/21 Allergies Allergy/AdvReac Type Severity Reaction Status Date / Time amoxicillin [Amoxicillin] AdvReac Vomiting Verified 11/01/21 10:54 morphine AdvReac Vomiting Verified 11/01/21 10:54 Review of Systems ROS Statement: Those systems with pertinent positive or pertinent negative responses have been documented in the HPI. ROS Other: All systems not noted in ROS Statement are negative. EKG Findings - EKG Results: EKG: interpreted by FARHAT, WNL, sinus rhythm, normal axis, normal QRS, normal ST/T, no acute changes (Normal sinus rhythm 83. Interval 134 QRS duration 88 QT since QTC 360/423) Past Medical History Past Medical History: Asthma, Pneumonia Additional Past Medical History / Comment(s): migraine, pancreatitis History of Any Multi-Drug Resistant Organisms: None Reported Past Surgical History: Appendectomy, Uterine Ablation Additional Past Surgical History / Comment(s): whipple Past Anesthesia/Blood Transfusion Reactions: Previous Problems w/ Anesthesia, Postoperative Nausea & Vomiting (PONV) Additional Past Anesthesia/Blood Transfusion Reaction / Comment(s): difficulty waking up, low heart rate Past Psychological History: No Psychological Hx Reported Smoking Status: Never smoker Past Alcohol Use History: Rare Past Drug Use History: None Reported - Past Family History Mother Additional Family Medical History / Comment(s): paternal grandmother from a heart attack. maternal grandmother also had heart problems General Exam - General Exam Comments Initial Comments: This is a well-developed well-nourished awake alert oriented 3 female Limitations: no limitations General appearance: alert, in no apparent distress Head exam: Present: atraumatic, normocephalic, normal inspection Eye exam: Present: normal appearance, PERRL, EOMI. Absent: scleral icterus, conjunctival injection, periorbital swelling ENT exam: Present: normal exam, mucous membranes moist Neck exam: Present: normal inspection, full ROM. Absent: tenderness, meningismus, lymphadenopathy Respiratory exam: Present: normal lung sounds bilaterally. Absent: respiratory distress, wheezes, rales, rhonchi, stridor Cardiovascular Exam: Present: regular rate, normal rhythm, normal heart sounds. Absent: systolic murmur, diastolic murmur, rubs, gallop, clicks GI/Abdominal exam: Present: soft, normal bowel sounds. Absent: distended, tenderness, guarding, rebound, rigid Extremities exam: Present: normal inspection, full ROM, normal capillary refill. Absent: tenderness, pedal edema, joint swelling, calf tenderness Back exam: Present: normal inspection Neurological exam: Present: alert, oriented X3, CN II-XII intact Psychiatric exam: Present: normal affect, normal mood Skin exam: Present: warm, dry, intact, normal color. Absent: rash Course Vital Signs 11/01/21 11/01/21 09:49 10:58 Temperature 99.9 F H Pulse Rate 85 76 Respiratory 18 18 Rate Blood Pressure 134/82 127/82 O2 Sat by Pulse 98 97 Oximetry Chest Pain MDM - MDM Reevaluation patient finds that she feels improved x-rays are negative lab work all within normal limits with the exception of the platelet count of 126. We a long discussion regarding the findings patient does have prescription waiting for her that were given to her from her primary care office. Patient isn't consistent with a viral syndrome and the sequela thereof from COVID-19. Disposition Clinical Impression: Atypical chest pain, Viral syndrome, Febrile illness, acute, COVID-19 Disposition: HOME SELF-CARE Condition: Good Instructions (If sedation given, give patient instructions): Viral Syndrome (ED), Fever in Adults (ED) Is patient prescribed a controlled substance at d/c from ED?: No Referrals: Axel Peguero MD [Primary Care Provider] - 1-2 days
[2021-11-01 11:22] LABS: INR 0.9 (<1.2); Partial Thromboplastin Time 24.2 sec (22.0-30.0); Prothrombin Time 9.8 sec (9.0-12.0)
[2021-11-01 11:24] LABS: ALT 21 U/L (4-34); AST 28 U/L (14-36); African American GFR (CKD) >90 (>60 ml/min/1.73 sqM); Albumin 3.9 g/dL (3.5-5.0); Alkaline Phosphatase 41 U/L (38-126); Amylase 61 U/L (30-110); Anion Gap 8 mmol/L; Blood Urea Nitrogen 11 mg/dL (7-17); C Reactive Protein 0.5 mg/dL (<1.0); Calcium 8.6 mg/dL (8.4-10.2); Carbon Dioxide 25 mmol/L (22-30); Chloride 106 mmol/L (98-107); Glucose 91 mg/dL (74-99); Lipase 32 U/L (23-300); Non-African American GFR(CKD) >90 (>60 ml/min/1.73 sqM); Potassium 3.9 mmol/L (3.5-5.1); Sodium 139 mmol/L (137-145); Total Bilirubin 0.2 mg/dL (0.2-1.3); Total Protein 6.3 g/dL (6.3-8.2)
[2021-11-01 13:36] VITALS: BP 126/70; PULSE 72; TEMP 98.9
== END 2021-11-01 13:35 | disposition home or self-care (01) ==
LOC: EC 09:43
DX: R07.89 Other chest pain (principal); B34.9 Viral infection, unspecified; U07.1 COVID-19; J45.909 Unspecified asthma, uncomplicated; G40.909 Epilepsy, unspecified, not intractable, without status epilepticus; Z72.89 Other problems related to lifestyle
CPT/HCPCS: 36415; 71046; 80053; 82150; 83690; 83735; 83880; 84484; 85025; 85379; 85610; 85730; 86140; 87040; 93005; 99285

== ENCOUNTER → 2023-03-30 | Outpatient (CLI) | payer BC ==
--- NOTE | 2023-03-31 09:54 | CT ---
EXAMINATION TYPE: CT pelvis w con DATE OF EXAM: 03/30/2023 COMPARISON: 12/05/2020 HISTORY: 48 year-old female R1 0.2, Lower abdominal pain x 4 months TECHNIQUE: Contiguous axial scanning of the pelvis following administration of 100 ml Isovue 300 IV c ontrast. Delayed images through the bladder and coronal/sagittal reconstructions performed. CT DLP: 459 mGycm Automated exposure control for dose reduction was used. FINDINGS: Similar borderline to mild dilatation of the main pancreatic duct up to 3 mm. There appears to have b een prior pancreatic head surgery, probably with both seizure. There is moderate stool burden. Possible small right inguinal hernia, axial image 52, unchanged from 12/05/2020. Prominent distention of the urinary bladder. Uterus anteverted. Heterogeneous enhancement of the myom etrium. More detailed assessment with ultrasound can be performed if indicated. There is a 1.8 cm dom inant follicle or functional cyst of the right ovary. Left ovary is visualized. No abnormal fluid col lection in the pelvis or pelvic lymphadenopathy. No dilated small bowel or free air. 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 IMPRESSION: 1. SIMILAR SMALL RIGHT INGUINAL HERNIA COMPARED TO 12/05/2020. 2. HETEROGENEOUS ENHANCEMENT OF THE MYOMETRIUM OF THE UTERUS. PROBABLY PHYSIOLOGIC CHANGE. PELVIC ULT RASOUND CAN BE PERFORMED FOR MORE DETAILED ASSESSMENT IF INDICATED. 3. A 1.8 CM DOMINANT FOLLICLE OR FUNCTIONAL CYST OF THE RIGHT OVARY. 4. UNCHANGED BORDERLINE TO MILD DILATATION OF THE MAIN PANCREATIC DUCT UP TO 3 MM. QUERY PRIOR WHIPPL E PROCEDURE.
== END | disposition home or self-care (01) ==
LOC: RADCTMAIN 17:37
PROVIDERS: ATTEND Obstetrics & Gynecology
DX: K86.89 Other specified diseases of pancreas (principal); K40.90 Unilateral inguinal hernia, without obstruction or gangrene, not specified as recurrent; N83.201 Unspecified ovarian cyst, right side
CPT/HCPCS: 72193; Q9967

== ENCOUNTER 2023-07-02 10:25 | Emergency (ER) | payer BC ==
[2023-07-02 10:35] VITALS: RESP 18; TEMP 99
[2023-07-02 11:18] LABS: Basophils % (A) 0 %; Eosinophils # (A) 0.2 k/uL (0-0.7); Eosinophils % (A) 3 %; HCT 42.7 % (34.0-46.0); HGB 14.6 gm/dL (11.4-16.0); Lymphocytes # (A) 1.8 k/uL (1.0-4.8); Lymphocytes % (A) 32 %; MCH 32.5 pg (25.0-35.0); MCHC 34.3 g/dL (31.0-37.0); MCV 94.8 fL (80.0-100.0); Mean Platelet Volume 7.8; Monocytes # (A) 0.4 k/uL (0-1.0); Monocytes % (A) 6 %; Neutrophils # (A) 3.2 k/uL (1.3-7.7); Neutrophils % (A) 57 %; Platelet Count 189 k/uL (150-450); RDW 12.1 % (11.5-15.5); WBC 5.7 k/uL (3.8-10.6)
--- NOTE | 2023-07-02 11:23 | XR ---
EXAMINATION TYPE: XR chest 2V DATE OF EXAM: 07/02/2023 11:16 AM COMPARISON: Chest radiographs from 11/01/2021 TECHNIQUE: XR chest 2V Frontal and lateral views of the chest. CLINICAL INDICATION:Female, 48 years old with history of dysrhythmia; FINDINGS: Lungs/Pleura: There is no evidence of pleural effusion, focal consolidation, or pneumothorax. Pulmonary vascularity: Unremarkable. Heart/mediastinum: Cardiomediastinal silhouette is unremarkable. Musculoskeletal: No acute osseous pathology. IMPRESSION: No acute cardiopulmonary disease/process. No significant change from prior examination.
[2023-07-02 11:28] LABS: INR 0.9 (<1.2); Partial Thromboplastin Time 24.2 sec (22.0-30.0); Prothrombin Time 10.1 sec (9.0-12.0)
--- NOTE | 2023-07-02 11:34 | ED ---
General Adult HPI - General Chief complaint: Arrhythmia/Palpitations Stated complaint: palpitations Time Seen by Provider: 07/02/23 10:45 Source: patient, RN notes reviewed, old records reviewed Mode of arrival: ambulatory Limitations: no limitations - History of Present Illness Initial comments: This is a 48-year-old female presents emergency Department complaining of palpitations since last Wednesday. Patient states it happens and last seconds and feels like it takes her breath away for that second and then it goes away and then a little while later recurs again. Patient states on Wednesday when it started it was much worse and it is today but it happens about once every minute or 2 today. Patient denies any chest pain patient denies any significant shortness of breath between episodes. Patient denies any swelling to legs or calf tenderness. Patient denies any recent fever chills or cough per patient denies any stimulants. Patient denies any heavy drinking. Patient denies any back pain. Patient denies any previous history of similar. - Related Data Home Medications Medication Instructions Recorded Confirmed Erenumab-Aooe [Aimovig 70 mg IM Q30D 11/03/18 11/01/21 Autoinjector] Acetaminophen Tab [Tylenol Tab] 1,000 mg PO Q6HR PRN 11/01/21 11/01/21 Ibuprofen [Motrin Ib] 400 mg PO Q8H PRN 11/01/21 11/01/21 Multivitamins, Thera [Multivitamin 1 tab PO DAILY 11/01/21 11/01/21 (formulary)] Rizatriptan Odt [Maxalt Assistant Clinical Nurse Manager] 10 mg PO BID PRN 11/01/21 11/01/21 Allergies Allergy/AdvReac Type Severity Reaction Status Date / Time avocado Allergy Itching Verified 07/02/23 10:35 amoxicillin [Amoxicillin] AdvReac Vomiting Verified 07/02/23 10:35 morphine AdvReac Vomiting Verified 07/02/23 10:35 Review of Systems ROS Statement: Those systems with pertinent positive or pertinent negative responses have been documented in the HPI. ROS Other: All systems not noted in ROS Statement are negative. Past Medical History Past Medical History: Asthma, Pneumonia Additional Past Medical History / Comment(s): migraine, pancreatitis History of Any Multi-Drug Resistant Organisms: None Reported Past Surgical History: Appendectomy, Uterine Ablation Additional Past Surgical History / Comment(s): whipple Past Anesthesia/Blood Transfusion Reactions: Previous Problems w/ Anesthesia, Postoperative Nausea & Vomiting (PONV) Additional Past Anesthesia/Blood Transfusion Reaction / Comment(s): difficulty waking up, low heart rate Past Psychological History: No Psychological Hx Reported Smoking Status: Never smoker Past Alcohol Use History: Rare Past Drug Use History: None Reported - Past Family History Mother Additional Family Medical History / Comment(s): paternal grandmother from a heart attack. maternal grandmother also had heart problems General Exam - General Exam Comments Initial Comments: GENERAL: Patient is well-developed and well-nourished. Patient is nontoxic and well- hydrated and is in no acute distress. ENT: Neck is soft and supple. No significant lymphadenopathy is noted. Oropharynx is clear. Moist mucous membranes. Neck has full range of motion without eliciting any pain. EYES: The sclera were anicteric and conjunctiva were pink and moist. Extraocular movements were intact and pupils were equal round and reactive to light. Eyelids were unremarkable. PULMONARY: Unlabored respirations. Good breath sounds bilaterally. No audible rales rhonchi or wheezing was noted. CARDIOVASCULAR: There is a regular rate and rhythm without any murmurs gallops or rubs. Patient hasn't patient will extrasystole which I noted on the screen as a PVC ABDOMEN: Soft and nontender with normal bowel sounds. SKIN: Skin is clear with no lesions or rashes and otherwise unremarkable. NEUROLOGIC: Patient is alert and oriented x3. Cranial nerves II through XII are grossly intact. Motor and sensory are also intact. Normal speech, volume and content. Symmetrical smile. MUSCULOSKELETAL: Normal extremities with adequate strength and full range of motion. No lower extremity swelling or edema. No calf tenderness. LYMPHATICS: No significant lymphadenopathy is noted PSYCHIATRIC: Normal psychiatric evaluation. Limitations: no limitations Course Vital Signs 07/02/23 10:31 Temperature 99 F Pulse Rate 76 Respiratory 18 Rate Blood Pressure 125/81 O2 Sat by Pulse 99 Oximetry Medical Decision Making - Medical Decision Making EKG was determined by myself shows a sinus rhythm at 73 bpm [place] interval 242 QRS is 92 QT interval 357 QTC is 383. Patient's EKG shows no ST segment elevation or depression. Was pt. sent in by a medical professional or institution (, PA, RESPIRATORY THERAPY TECHNICIAN, urgent care, hospital, or senior care...) When possible be specific @ -No Did you speak to anyone other than the patient for history (EMS, parent, family, police, friend...)? What history was obtained from this source @ -No Did you review nursing and triage notes (agree or disagree)? Why? @ -I reviewed and agree with nursing and triage notes Were old charts reviewed (outside hosp., previous admission, EMS record, old EKG, old radiological studies, urgent care reports/EKG's, senior care records)? Report findings @ -No old charts were reviewed Differential Diagnosis (chest pain, altered mental status, abdominal pain women, abdominal pain men, vaginal bleeding, weakness, fever, dyspnea, syncope, headache, dizziness, GI bleed, back pain, seizure, CVA, palpatations, mental health, musculoskeletal)? @ -Differential Palpitations Ventricular arrhythmias, atrial arrhythmias, myocardial infarction, anemia, thyrotoxicosis, electrolyte imbalance, hypokalemia, pulmonary embolism, pulmonary disease, drugs, alcohol, anxiety, stress.... This is not meant to be an all-inclusive list. EKG interpreted by me (3pts min.). @ -As above X-rays interpreted by me (1pt min.). @ -No acute abnormality CT interpreted by me (1pt min.). @ -None done U/S interpreted by me (1pt. min.). @ -None done What testing was considered but not performed or refused? (CT, X-rays, U/S, labs)? Why? @ -None What meds were considered but not given or refused? Why? @ -None Did you discuss the management of the patient with other professionals (professionals i.e. , PA, RESPIRATORY THERAPY TECHNICIAN, lab, RT, psych nurse, clinical social worker, incinerator operator, teacher, correctional probation officer, ed case manager)? Give summary @ -No Was smoking cessation discussed for >3mins.? @ -No Was critical care preformed (if so, how long)? @ -No Were there social determinants of health that impacted care today? How? (Homelessness, low income, unemployed, alcoholism, drug addiction, transportation, low edu. Level, literacy, decrease access to med. care, senior living, rehab)? @ -No Was there de-escalation of care discussed even if they declined (Discuss DNR or withdrawal of care, Hospice)? DNR status @ -No What co-morbidities impacted this encounter? (DM, HTN, Smoking, COPD, CAD, Cancer, CVA, ARF, Chemo, Hep., AIDS, mental health diagnosis, sleep apnea, morbid obesity)? @ -None Was patient admitted / discharged? Hospital course, mention meds given and route, prescriptions, significant lab abnormalities, going to OR and other pertinent info. @ -Patient was feeling palpitations in her heart every time she did I noticed a PVC on the monitor. This occurred multiple times in the emergency department. Patient was in no distress ear patient had no chest pain no shortness of breath. Patient has an appointment to follow up with cardiology in 3 weeks. Undiagnosed new problem with uncertain prognosis? @ -No Drug Therapy requiring intensive monitoring for toxicity (Heparin, Nitro, Insulin, Cardizem)? @ -No Were any procedures done? @ -No Diagnosis/symptom? @ -PVCs Acute, or Chronic, or Acute on Chronic? @ -Acute Uncomplicated (without systemic symptoms) or Complicated (systemic symptoms)? @ -Complicated Side effects of treatment? @ -No Exacerbation, Progression, or Severe Exacerbation? @ -No Poses a threat to life or bodily function? How? (Chest pain, [place], [place], pneumonia, PE, COPD, DKA, ARF, appy, cholecystitis, CVA, Diverticulitis, Homicidal, Suicidal, threat to staff... and all critical care pts) @ -No - Lab Data Result diagrams: 07/02/23 10:53 07/02/23 11:11 Lab Results 07/02/23 07/02/23 07/02/23 Range/Units 10:53 11:11 11:11 WBC 5.7 (3.8-10.6) k/uL RBC 4.50 (3.80-5.40) m/uL Hgb 14.6 (11.4-16.0) gm/dL Hct 42.7 (34.0-46.0) % MCV 94.8 (80.0-100.0) fL MCH 32.5 (25.0-35.0) pg MCHC 34.3 (31.0-37.0) g/dL RDW 12.1 (11.5-15.5) % Plt Count 189 (150-450) k/uL MPV 7.8 Neutrophils % 57 % Lymphocytes % 32 % Monocytes % 6 % Eosinophils % 3 % Basophils % 0 % Neutrophils # 3.2 (1.3-7.7) k/uL Lymphocytes # 1.8 (1.0-4.8) k/uL Monocytes # 0.4 (0-1.0) k/uL Eosinophils # 0.2 (0-0.7) k/uL Basophils # 0.0 (0-0.2) k/uL PT 10.1 (9.0-12.0) sec INR 0.9 (<1.2) APTT 24.2 (22.0-30.0) sec Sodium 138 (137-145) mmol/L Potassium 3.8 (3.5-5.1) mmol/L Chloride 104 (98-107) mmol/L Carbon Dioxide 29 (22-30) mmol/L Anion Gap 5 mmol/L BUN 11 (7-17) mg/dL Creatinine 0.62 (0.52-1.04) mg/dL Est GFR (CKD-EPI)AfAm >90 (>60 ml/min/1.73 sqM) Est GFR (CKD-EPI)NonAf >90 (>60 ml/min/1.73 sqM) Glucose 87 (74-99) mg/dL Calcium 9.6 (8.4-10.2) mg/dL Magnesium 2.0 (1.6-2.3) mg/dL Total Bilirubin 0.5 (0.2-1.3) mg/dL AST 25 (14-36) U/L ALT 20 (4-34) U/L Alkaline Phosphatase 51 (38-126) U/L Troponin I (0.000-0.034) ng/mL Total Protein 7.0 (6.3-8.2) g/dL Albumin 4.3 (3.5-5.0) g/dL TSH 1.160 (0.465-4.680) mIU/L Urine Opiates Screen (NotDetected) Ur Oxycodone Screen (NotDetected) Urine Methadone Screen (NotDetected) Ur Propoxyphene Screen (NotDetected) Ur Barbiturates Screen (NotDetected) U Tricyclic Antidepress (NotDetected) Ur Phencyclidine Scrn (NotDetected) Ur Amphetamines Screen (NotDetected) U Methamphetamines Scrn (NotDetected) U Benzodiazepines Scrn (NotDetected) Urine Cocaine Screen (NotDetected) U Marijuana (THC) Screen (NotDetected) 07/02/23 07/02/23 Range/Units 11:11 11:11 WBC (3.8-10.6) k/uL RBC (3.80-5.40) m/uL Hgb (11.4-16.0) gm/dL Hct (34.0-46.0) % MCV (80.0-100.0) fL MCH (25.0-35.0) pg MCHC (31.0-37.0) g/dL RDW (11.5-15.5) % Plt Count (150-450) k/uL MPV Neutrophils % % Lymphocytes % % Monocytes % % Eosinophils % % Basophils % % Neutrophils # (1.3-7.7) k/uL Lymphocytes # (1.0-4.8) k/uL Monocytes # (0-1.0) k/uL Eosinophils # (0-0.7) k/uL Basophils # (0-0.2) k/uL PT (9.0-12.0) sec INR (<1.2) APTT (22.0-30.0) sec Sodium (137-145) mmol/L Potassium (3.5-5.1) mmol/L Chloride (98-107) mmol/L Carbon Dioxide (22-30) mmol/L Anion Gap mmol/L BUN (7-17) mg/dL Creatinine (0.52-1.04) mg/dL Est GFR (CKD-EPI)AfAm (>60 ml/min/1.73 sqM) Est GFR (CKD-EPI)NonAf (>60 ml/min/1.73 sqM) Glucose (74-99) mg/dL Calcium (8.4-10.2) mg/dL Magnesium (1.6-2.3) mg/dL Total Bilirubin (0.2-1.3) mg/dL AST (14-36) U/L ALT (4-34) U/L Alkaline Phosphatase (38-126) U/L Troponin I <0.012 (0.000-0.034) ng/mL Total Protein (6.3-8.2) g/dL Albumin (3.5-5.0) g/dL TSH (0.465-4.680) mIU/L Urine Opiates Screen Not Detected (NotDetected) Ur Oxycodone Screen Not Detected (NotDetected) Urine Methadone Screen Not Detected (NotDetected) Ur Propoxyphene Screen Not Detected (NotDetected) Ur Barbiturates Screen Not Detected (NotDetected) U Tricyclic Antidepress Not Detected (NotDetected) Ur Phencyclidine Scrn Not Detected (NotDetected) Ur Amphetamines Screen Not Detected (NotDetected) U Methamphetamines Scrn Not Detected (NotDetected) U Benzodiazepines Scrn Not Detected (NotDetected) Urine Cocaine Screen Not Detected (NotDetected) U Marijuana (THC) Screen Not Detected (NotDetected) Disposition Clinical Impression: Premature ventricular contractions Disposition: HOME SELF-CARE Condition: Good Instructions (If sedation given, give patient instructions): Premature Ventricular Contractions (ED) Is patient prescribed a controlled substance at d/c from ED?: No Referrals: None,Stated [Primary Care Provider] - 1-2 days Time of Disposition: 12:36
[2023-07-02 11:36] LABS: ALT 20 U/L (4-34); AST 25 U/L (14-36); African American GFR (CKD) >90 (>60 ml/min/1.73 sqM); Albumin 4.3 g/dL (3.5-5.0); Alkaline Phosphatase 51 U/L (38-126); Anion Gap 5 mmol/L; Blood Urea Nitrogen 11 mg/dL (7-17); Calcium 9.6 mg/dL (8.4-10.2); Carbon Dioxide 29 mmol/L (22-30); Chloride 104 mmol/L (98-107); Glucose 87 mg/dL (74-99); Non-African American GFR(CKD) >90 (>60 ml/min/1.73 sqM); Potassium 3.8 mmol/L (3.5-5.1); Sodium 138 mmol/L (137-145); Total Bilirubin 0.5 mg/dL (0.2-1.3)
[2023-07-02 11:44] LABS: Amphetamine Screen,Urine Not Detected (NotDetected); Barbiturate Screen,Urine Not Detected (NotDetected); Benzodiazepines Screen,Urine Not Detected (NotDetected); Cocaine Screen,Urine Not Detected (NotDetected); Methadone Screen, Urine Not Detected (NotDetected); Opiate Screen,Urine Not Detected (NotDetected); Oxycodone Screen, Urine Not Detected (NotDetected); Phencyclidine Screen,Urine Not Detected (NotDetected); Tricyclic Antidepressant,Urine Not Detected (NotDetected); Urn Cannabinoid Scrn Not Detected (NotDetected)
[2023-07-02 12:49] VITALS: BP 115/62; PULSE 78
== END 2023-07-02 12:49 | disposition home or self-care (01) ==
LOC: EC 10:25
DX: I49.3 Ventricular premature depolarization (principal); J45.909 Unspecified asthma, uncomplicated; Z88.0 Allergy status to penicillin; Z88.5 Allergy status to narcotic agent; Z91.040 Latex allergy status; Z91.018 Allergy to other foods; Z90.49 Acquired absence of other specified parts of digestive tract
CPT/HCPCS: 36415; 71046; 80053; 80306; 83735; 84443; 84484; 85025; 85610; 85730; 93005; 99285

== ENCOUNTER → 2023-08-03 | Outpatient (CLI) | payer BC ==
--- NOTE | 2023-08-04 08:04 | MM ---
Reason for Exam: Screening (asymptomatic). Last mammogram was performed 1 year(s) and 5 month(s) ago. Patient History: Menarche at age 11. First Full-Term at age 24. Hormonal Contraceptives, from age 17 until age 32. 2012, Benign Excisional Biopsy on the left side. 11/04/2018, Benign Cyst Aspiration on the left side. 11/04/2018, Benign Cyst Aspiration on the left side. 11/04/2018, Benign Cyst Aspiration on the right side. Risk Values: Lucia 5 year model risk: 1.3%. NCI Lifetime model risk: 11.6%. Prior Study Comparison: 11/03/2018 Bilateral Diagnostic Mammogram, [facility]. 05/02/2021 Bilateral Diagnostic Mammogram, [facility]. 03/23/2022 Bilateral MG 3D diag mammo w/cad DIANA, [facility]. Tissue Density: The breast tissue is extremely dense which could obscure a lesion on mammography. Findings: Analyzed By CAD. There is no suspicious group of microcalcifications or new suspicious mass in either breast. Overall Assessment: Benign, BI-RAD 2 Management: Screening Mammogram of both breasts in 1 year. A clinical breast exam by your physician is recommended on an annual basis and results should be correlated with mammographic findings. Note on Lucia scores and lifetime risk: 1. A Lucia score greater than 3% is considered moderate risk. If this is the case, consider specialist referral to assess eligibility for a risk reducing agent. If overall lifetime risk for the development of breast cancer is 20% or higher, the patient may qualify for future screening with alternating mammogram and breast MRI. Electronically signed and approved by: Chuck Tavarez D.O.
== END | disposition home or self-care (01) ==
LOC: RADMAMWWP 16:40
PROVIDERS: ATTEND Obstetrics & Gynecology
DX: Z12.31 Encounter for screening mammogram for malignant neoplasm of breast (principal)
CPT/HCPCS: 77063; 77067

== ENCOUNTER → 2024-01-20 | Outpatient (CLI) | payer BC ==
[2024-01-20 21:39] LABS: Alternaria alternata IgE <0.10 kU/L; Aspergillus fumagatus IgE <0.10 kU/L; Birch IgE 1.57 kU/L; Cat Epith & Dander IgE 2.09 kU/L; Cladosporian herbarum IgE <0.10 kU/L; Cockroach IgE <0.10 kU/L; Dermato. farinae IgE 1.33 kU/L; Dog Dander IgE 2.95 kU/L; Maple (Box Elder) IgE 0.11 kU/L; Oak IgE <0.10 kU/L; Ragweed,Common IgE 0.32 kU/L
[2024-01-20 23:52] LABS: Clam IgE <0.10 kU/L; Codfish IgE <0.10 kU/L; Egg White IgE 0.17 kU/L; Peanut IgE <0.10 kU/L; Scallop IgE <0.10 kU/L; Shrimp IgE <0.10 kU/L; Soybean IgE <0.10 kU/L; Walnut IgE (Food) <0.10 kU/L
[2024-01-21 14:30] LABS: Almond IgE <0.10 kU/L (<0.10); Almond IgE Class CLASS 0; Pork IgE Class CLASS 0
[2024-01-21 14:31] LABS: Beef IgE <0.10 kU/L (<0.10); Beef IgE Class CLASS 0; Timothy Grass IgE <0.10 kU/L (<0.10); Timothy Grass IgE Class CLASS 0; Yeast Bakers/Brew IgE <0.10 kU/L (<0.10); Yeast Bakers/Brew IgE Class CLASS 0
[2024-01-21 14:32] LABS: Chicken IgE Class CLASS 0; Johnson Grass IgE Class CLASS 0; Rhizopus nigricans IgE <0.10 kU/L (<0.10); Rhizopus nigricans IgE Class CLASS 0
[2024-01-21 14:33] LABS: Aureo. pullulans IgE <0.10 kU/L (<0.10); Aureo. pullulans IgE Class CLASS 0; Epicoccum purpurascens Class CLASS 0; Epicoccum purpurascens IgE <0.10 kU/L (<0.10); Latex IgE Class CLASS 0; Mucor racemosus IgE <0.10 kU/L (<0.10); Mucor racemosus IgE Class CLASS 0
[2024-01-21 14:34] LABS: Candida albicans IgE Class CLASS 0; S.rostrata/Helminth Class CLASS 0; S.rostrata/Helminth IgE <0.10 kU/L (<0.10); Walnut Tree IgE <0.10 kU/L (<0.10); Walnut Tree IgE Class CLASS 0
[2024-01-21 14:35] LABS: Avocado Class CLASS 0; Banana IgE Class CLASS 0; Hazelnut IgE <0.10 kU/L (<0.10); Hazelnut IgE Class CLASS 0; Kiwi IgE <0.10 kU/L (<0.10); Kiwi IgE Class CLASS 0; Sycamore(Mpl.Lf) IgE <0.10 kU/L (<0.10); Sycamore(Mpl.Lf) IgE Class CLASS 0
[2024-01-21 14:36] LABS: Com. Pigweed IgE <0.10 kU/L (<0.10); Com. Pigweed IgE Class CLASS 0; Cottonwood IgE <0.10 kU/L (<0.10); Lamb's Quarter IgE <0.10 kU/L (<0.10); Lamb's Quarter IgE Class CLASS 0; White Ash IgE Class CLASS 0
[2024-01-21 14:37] LABS: English Plantain IgE Class CLASS 0
== END | disposition home or self-care (01) ==
LOC: LABWHC1 08:35
PROVIDERS: ATTEND Otolaryngology
DX: J30.89 Other allergic rhinitis (principal)
CPT/HCPCS: 36415; 82785; 86001; 86003

== ENCOUNTER → 2024-04-05 | Outpatient (CLI) | payer BC ==
--- NOTE | 2024-04-05 18:31 | CT ---
EXAMINATION TYPE: CT facial bones w con CT DLP: 570.8 mGycm, Automated exposure control for dose reduction was used. DATE OF EXAM: 04/05/2024 6:11 PM COMPARISON: None. CLINICAL INDICATION:Female, 49 years old with history of L02.92 FURUNCLE, UNSPECIFIED; PHH, infection on chin TECHNIQUE: Multiple unenhanced axial CT images were obtained of the facial bones soft tissue and bone windows. Coronal, axial and sagittal reformatted images were also provided in soft tissue and bone windows and submitted for interpretation. Additional 3-D reformatted images were obtained on a [employer] workstation. . Contrast used:100 mL of Isovue 300 with IV Contrast, (none if empty) Oral contrast used: (none if empty) FINDINGS: Fat stranding changes involving the chin without evidence of organizing fluid collection. N o obvious periodontal disease. There is no evidence of fracture, subluxation, dislocation, or additio nal soft tissue swelling. The orbital contents are unremarkable.The temporal-mandibular joints appear symmetric. The visualized portion of the paranasal sinuses appear clear. IMPRESSION: Edema over the chin no organizing fluid collection, no evidence for osseous erosion. Correlate synovi tis no obvious periodontal disease.
== END | disposition home or self-care (01) ==
LOC: RADCTMAIN 17:37
PROVIDERS: ATTEND Family Medicine
DX: L02.02 Furuncle of face (principal); R60.0 Localized edema
CPT/HCPCS: 70487; Q9967

== ENCOUNTER 2024-04-24 13:56 | Emergency (ER) | payer BC ==
--- NOTE | 2024-04-24 14:43 | ED ---
Skin/Abscess/FB HPI - General Chief complaint: Skin/Abscess/Foreign Body Stated complaint: MRSA IN NECK Time Seen by Provider: 04/24/24 14:20 Source: patient, RN notes reviewed Mode of arrival: ambulatory Limitations: no limitations - History of Present Illness Initial comments: This is a 49-year-old female presents emergency department chief complaint of a rash and abscess to her right neck that has developed over the past 3 days. Patient was advised by her principal administrative clerk to report to the ED for further evaluation due to history of MRSA infection. Patient skin neurology spoke with Dr. Gupta over the phone was recommended patient reports emergency department for further evaluation. Patient states that she was treated beginning of April with doxycycline and 4 doses of Rocephin. She is denying fevers, chills, fatigue, abdominal pain, nausea, and vomiting. - Related Data Home Medications Medication Instructions Recorded Confirmed Atogepant [Qulipta] 60 mg PO HS 04/24/24 04/24/24 Diclofenac Sodium [Voltaren] 75 mg PO BID PRN 04/24/24 04/24/24 EPINEPHrine (Auto Inject) [Epipen] 0.3 mg IM ONCE PRN 04/24/24 04/24/24 Estrodim 1 tab PO DAILY 04/24/24 04/24/24 Ibuprofen [Motrin Ib] 400 mg PO Q8H PRN 04/24/24 04/24/24 Progesterone, Micronized 100 mg PO HS 04/24/24 04/24/24 [Progesterone] Rizatriptan Benzoate [Maxalt] 10 mg PO BID PRN 04/24/24 04/24/24 Previous Rx's Medication Instructions Recorded Sulfamethox-Tmp 800-160Mg [Bactrim 1 each PO Q12HR #20 tab 04/24/24 Ds] Allergies Allergy/AdvReac Type Severity Reaction Status Date / Time avocado Allergy Anaphylaxis Verified 04/24/24 18:18 egg Allergy Anaphylaxis Verified 04/24/24 18:18 amoxicillin [Amoxicillin] AdvReac Vomiting Verified 04/24/24 18:18 banana AdvReac Unknown Verified 04/24/24 18:18 Beef Containing Products AdvReac Unknown Verified 04/24/24 18:18 [Beef] coconut AdvReac Abdominal Verified 04/24/24 18:18 Pain corn AdvReac Unknown Verified 04/24/24 18:18 Milk Containing Products AdvReac Unknown Verified 04/24/24 18:18 (Dairy) morphine AdvReac Vomiting Verified 04/24/24 18:18 pineapple AdvReac Abdominal Verified 04/24/24 18:18 Pain wheat AdvReac Unknown Verified 04/24/24 18:18 Review of Systems ROS Statement: Those systems with pertinent positive or pertinent negative responses have been documented in the HPI. ROS Other: All systems not noted in ROS Statement are negative. Past Medical History Past Medical History: Asthma, Pneumonia Additional Past Medical History / Comment(s): migraine, pancreatitis History of Any Multi-Drug Resistant Organisms: MRSA Date of last positivie culture/infection: 04-02-2024 MDRO Source:: neck Past Surgical History: Appendectomy, Uterine Ablation Additional Past Surgical History / Comment(s): whipple Past Anesthesia/Blood Transfusion Reactions: Previous Problems w/ Anesthesia, Postoperative Nausea & Vomiting (PONV) Additional Past Anesthesia/Blood Transfusion Reaction / Comment(s): difficulty waking up, low heart rate Past Psychological History: No Psychological Hx Reported Smoking Status: Never smoker Past Alcohol Use History: Rare Past Drug Use History: None Reported - Past Family History Mother Additional Family Medical History / Comment(s): paternal grandmother from a heart attack. maternal grandmother also had heart problems General Exam Limitations: no limitations General appearance: alert, in no apparent distress Head exam: Present: atraumatic, normocephalic, normal inspection Eye exam: Present: normal appearance, PERRL, EOMI. Absent: scleral icterus, conjunctival injection, periorbital swelling ENT exam: Present: normal exam, mucous membranes moist Neck exam: Present: tenderness (right anterior neck, 1 cm abscess with scabbing and no purulence noted, erythematous and warm to touch spreading aprox. 3 cm by 2 cm) Respiratory exam: Present: normal lung sounds bilaterally. Absent: respiratory distress, wheezes, rales, rhonchi, stridor Cardiovascular Exam: Present: regular rate, normal rhythm, normal heart sounds. Absent: systolic murmur, diastolic murmur, rubs, gallop, clicks GI/Abdominal exam: Present: soft, normal bowel sounds. Absent: distended, tenderness, guarding, rebound, rigid Extremities exam: Present: normal inspection, full ROM, normal capillary refill. Absent: tenderness, pedal edema, joint swelling, calf tenderness Back exam: Present: normal inspection Neurological exam: Present: alert, oriented X3, CN II-XII intact Skin exam: Present: other (see above for description) Course Vital Signs 04/24/24 04/24/24 14:11 17:58 Temperature 97.9 F 98.5 F Pulse Rate 86 66 Respiratory 20 16 Rate Blood Pressure 129/85 127/86 O2 Sat by Pulse 98 97 Oximetry Medical Decision Making - Medical Decision Making Was pt. sent in by a medical professional or institution (DARIEN Espinoza, MORTGAGE UNDERWRITER, urgent care, hospital, or alf...) When possible be specific @ -No Did you speak to anyone other than the patient for history (EMS, parent, family, police, friend...)? What history was obtained from this source @ -No Did you review nursing and triage notes (agree or disagree)? Why? @ -I reviewed and agree with nursing and triage notes Were old charts reviewed (outside hosp., previous admission, EMS record, old EKG, old radiological studies, urgent care reports/EKG's, alf records)? Report findings @ -No old charts were reviewed Differential Diagnosis (chest pain, altered mental status, abdominal pain women, abdominal pain men, vaginal bleeding, weakness, fever, dyspnea, syncope, headache, dizziness, GI bleed, back pain, seizure, CVA, palpatations, mental health, musculoskeletal)? @ -cellulitis, bacteremia, MRSA infection, this list is not all inclusive. EKG interpreted by me (3pts min.). @ -none X-rays interpreted by me (1pt min.). @ -None done CT interpreted by me (1pt min.). @ -None done U/S interpreted by me (1pt. min.). @ -None done What testing was considered but not performed or refused? (CT, X-rays, U/S, labs)? Why? @ -None What meds were considered but not given or refused? Why? @ -None Did you discuss the management of the patient with other professionals (professionals i.e. DARIEN Espinoza, [employer] UNDERWRITER, lab, RT, psych nurse, medical social consultant, cone examiner, teacher, pharmaceutical officer, case folder)? Give summary @ -No Was smoking cessation discussed for >3mins.? @ -No Was critical care preformed (if so, how long)? @ -No Were there social determinants of health that impacted care today? How? (Homelessness, low income, unemployed, alcoholism, drug addiction, transportati on, low edu. Level, literacy, decrease access to med. care, residential, rehab)? @ -No Was there de-escalation of care discussed even if they declined (Discuss DNR or withdrawal of care, Hospice)? DNR status @ -No What co-morbidities impacted this encounter? (DM, HTN, Smoking, COPD, CAD, Cancer, CVA, ARF, Chemo, Hep., AIDS, mental health diagnosis, sleep apnea, morbid obesity)? @ -None Was patient admitted / discharged? Hospital course, mention meds given and route, prescriptions, significant lab abnormalities, going to OR and other pertinent info. @ -Discharge. 49-year-old female with an abscess to the right neck. On examination patient has roughly 0.5 cm abscess with scabbing over it and an area of erythema warm to the touch that measures approximately 3 cm x 2 cm. At this time patient will be evaluated via laboratory studies. Patient's vitals are stable upon arrival, not febrile or tachycardic. Labs including CBC, CMP and lactate nonelevated. This time on patient's presentation addition to labs and vitals she is stable for discharge. Patient will be discharged home with B actrim and given a dose of Rocephin in the emergency department. Recommend the patient complete full course of antibiotics as prescribed and that she follows up with her primary care provider next week for further evaluation. All questions answered at bedside and strict return parameters discussed and she is verbalized understanding. Case discussed with Dr. Rebollar. Undiagnosed new problem with uncertain prognosis? @ -No Drug Therapy requiring intensive monitoring for toxicity (Heparin, Nitro, Insulin, Cardizem)? @ -No Were any procedures done? @ -No Diagnosis/symptom? @ -MRSA infection of neck Acute, or Chronic, or Acute on Chronic? @ -acute Uncomplicated (without systemic symptoms) or Complicated (systemic symptoms)? @ -uncomplicated Side effects of treatment? @ -No Exacerbation, Progression, or Severe Exacerbation? @ -No Poses a threat to life or bodily function? How? (Chest pain, [place], [place], pneumonia, PE, COPD, DKA, ARF, appy, cholecystitis, CVA, Diverticulitis, Homicidal, Suicidal, threat to staff... and all critical care pts) @ -No - Lab Data Result diagrams: 04/24/24 16:54 04/24/24 15:05 Lab Results 04/24/24 04/24/24 04/24/24 Range/Units 15:05 15:05 16:54 WBC 8.5 (3.8-10.6) k/uL RBC 4.24 (3.80-5.40) m/uL Hgb 13.3 (11.4-16.0) gm/dL Hct 41.5 (34.0-46.0) % MCV 97.8 (80.0-100.0) fL MCH 31.4 (25.0-35.0) pg MCHC 32.1 (31.0-37.0) g/dL RDW 12.3 (11.5-15.5) % Plt Count 161 (150-450) k/uL MPV 8.6 Neutrophils % 69 % Lymphocytes % 22 % Monocytes % 6 % Eosinophils % 3 % Basophils % 0 % Neutrophils # 5.9 (1.3-7.7) k/uL Lymphocytes # 1.8 (1.0-4.8) k/uL Monocytes # 0.5 (0-1.0) k/uL Eosinophils # 0.2 (0-0.7) k/uL Basophils # 0.0 (0-0.2) k/uL Sodium 140 (137-145) mmol/L Potassium 3.9 (3.5-5.1) mmol/L Chloride 110 H (98-107) mmol/L Carbon Dioxide 26 (22-30) mmol/L Anion Gap 4 mmol/L BUN 14 (7-17) mg/dL Creatinine 0.54 (0.52-1.04) mg/dL Est GFR (CKD-EPI)AfAm >90 (>60 ml/min/1.73 sqM) Est GFR (CKD-EPI)NonAf >90 (>60 ml/min/1.73 sqM) Glucose 118 H (74-99) mg/dL Plasma Lactic Acid Richar 1.0 (0.7-2.0) mmol/L Calcium 9.2 (8.4-10.2) mg/dL Total Bilirubin 0.4 (0.2-1.3) mg/dL AST 25 (14-36) U/L ALT 26 (4-34) U/L Alkaline Phosphatase 56 (38-126) U/L Total Protein 6.3 (6.3-8.2) g/dL Albumin 4.1 (3.5-5.0) g/dL Disposition Clinical Impression: MRSA cellulitis Disposition: HOME SELF-CARE Condition: Good Instructions (If sedation given, give patient instructions): MRSA (Methicillin- Resistant Staphylococcus Aureus) (ED) Additional Instructions: Return to the emergency department if symptoms worsen or not improve. Complete full course of antibiotics as prescribed. Recommended follow-up with your primary care provider in a week for further evaluation. Prescriptions: Sulfamethox-Tmp 800-160Mg [Bactrim Ds] 1 each PO Q12HR #20 tab Is patient prescribed a controlled substance at d/c from ED?: No Referrals: Jet Arndt MD [Primary Care Provider] - 1-2 days Time of Disposition: 17:27
[2024-04-24 15:35] LABS: ALT 26 U/L (4-34); AST 25 U/L (14-36); African American GFR (CKD) >90 (>60 ml/min/1.73 sqM); Albumin 4.1 g/dL (3.5-5.0); Alkaline Phosphatase 56 U/L (38-126); Anion Gap 4 mmol/L; Blood Urea Nitrogen 14 mg/dL (7-17); Calcium 9.2 mg/dL (8.4-10.2); Carbon Dioxide 26 mmol/L (22-30); Chloride 110 mmol/L (98-107); Glucose 118 mg/dL (74-99); Non-African American GFR(CKD) >90 (>60 ml/min/1.73 sqM); Potassium 3.9 mmol/L (3.5-5.1); Sodium 140 mmol/L (137-145); Total Bilirubin 0.4 mg/dL (0.2-1.3); Total Protein 6.3 g/dL (6.3-8.2)
[2024-04-24 17:12] LABS: Basophils % (A) 0 %; Eosinophils # (A) 0.2 k/uL (0-0.7); Eosinophils % (A) 3 %; HCT 41.5 % (34.0-46.0); HGB 13.3 gm/dL (11.4-16.0); Lymphocytes # (A) 1.8 k/uL (1.0-4.8); Lymphocytes % (A) 22 %; MCH 31.4 pg (25.0-35.0); MCHC 32.1 g/dL (31.0-37.0); MCV 97.8 fL (80.0-100.0); Mean Platelet Volume 8.6; Monocytes # (A) 0.5 k/uL (0-1.0); Monocytes % (A) 6 %; Neutrophils # (A) 5.9 k/uL (1.3-7.7); Neutrophils % (A) 69 %; Platelet Count 161 k/uL (150-450); RBC 4.24 m/uL (3.80-5.40); RDW 12.3 % (11.5-15.5); WBC 8.5 k/uL (3.8-10.6)
[2024-04-24] MEDS: cefTRIAXone IN SWFI 1,000 MG/10 ML SYRINGE IVP STA (17:53)
[2024-04-24 18:00] VITALS: BP 127/86; PULSE 66; RESP 16; TEMP 98.5
== END 2024-04-24 17:59 | disposition home or self-care (01) ==
LOC: EC 13:56
DX: L03.221 Cellulitis of neck (principal); B95.62 Methicillin resistant Staphylococcus aureus infection as the cause of diseases classified elsewhere; Z91.018 Allergy to other foods; Z91.011 Allergy to milk products; Z91.012 Allergy to eggs; Z88.5 Allergy status to narcotic agent; Z88.0 Allergy status to penicillin
CPT/HCPCS: 36415; 80053; 83605; 85025; 87040; 99283; 96374; J0696

== ENCOUNTER → 2024-12-25 | Outpatient (CLI) | payer BC ==
--- NOTE | 2024-12-26 07:44 | MM ---
Reason for Exam: Screening (asymptomatic). Last mammogram was performed 1 year(s) and 4 month(s) ago. Patient History: Menarche at age 11. First Full-Term at age 24. Perimenopausal. Hormonal Contraceptives, from age 17 until age 32. 11/04/2018, Benign Cyst Aspiration on the left side. 11/04/2018, Benign Cyst Aspiration on the left side. 11/04/2018, Benign Cyst Aspiration on the right side. Risk Values: Lucia 5 year model risk: 1.1%. NCI Lifetime model risk: 9.7%. Prior Study Comparison: 05/02/2021 Bilateral Diagnostic Mammogram, [facility]. 03/23/2022 Bilateral MG 3D diag mammo w/cad DIANA, [facility]. 08/03/2023 Bilateral MG 3D screening mammo w/cad, [facility]. Tissue Density: The breasts are extremely dense, which lowers the sensitivity of mammography. Findings: Analyzed By CAD. Right breast: There is no suspicious group of microcalcifications or new suspicious mass. Left breast: There is no suspicious group of microcalcifications or new suspicious mass. Overall Assessment: Negative, BI-RAD 1 Management: Screening Mammogram of both breasts in [address] [facility] will attempt to contact patient to return for supplemental views and ultrasound if indicated. Patient should continue monthly self-breast exams. A clinical breast exam by your physician is recommended on an annual basis. This exam should not preclude additional follow-up of suspicious palpable abnormalities. Note on Lucia scores and lifetime risk: 1. A Lucia score greater than 3% is considered moderate risk. If this is the case, consider specialist referral to assess eligibility for a risk reducing agent. 2. If overall lifetime risk for the development of breast cancer is 20% or higher, the patient may qualify for future screening with alternating mammogram and breast MRI. [facility], , 12/26/2024 7:41 AM. Electronically signed and approved by: Hayden Madrigal DO
== END | disposition home or self-care (01) ==
LOC: RADMAMWWP 16:29
PROVIDERS: ATTEND Obstetrics & Gynecology
DX: Z12.31 Encounter for screening mammogram for malignant neoplasm of breast (principal); R92.343 Mammographic extreme density, bilateral breasts
CPT/HCPCS: 77063; 77067

== ENCOUNTER → 2025-01-10 | Outpatient (CLI) | payer BC ==
--- NOTE | 2025-01-10 18:40 | US ---
EXAMINATION TYPE: US thyroid st tissue head/neck DATE OF EXAM: 01/10/2025 COMPARISON: NONE CLINICAL INDICATION: Female, 49 years old with history of E07.9 DISORDER OF THYROID, UNSPECIFIED; dys phagia x 4 years TECHNIQUE: Grayscale and color Doppler imaging of the thyroid gland. FINDINGS: GLAND SIZE: Right Lobe: 4.9x1.3x1.3 cm Overall Parenchyma: homogeneous Left Lobe: 3.7x1.0x1.2 cm Overall Parenchyma: homogeneous Isthmus Thickness: 0.2 cm NODULES RIGHT: # of nodules measured on right: 0 LEFT: # of nodules measured on left: 0 ISTHMUS: # of nodules measured in the isthmus: 0 Bilateral neck scanned, no evidence of lymphadenopathy. a few scattered subcentimeter colloid cysts seen bilaterally IMPRESSION: No suspicious thyroid nodules,a few scattered subcentimeter colloid cysts seen bilaterally 2017 ACR TI-RADS LEVEL: TI-RADS 1 - BENIGN: No FNA *Highest TI-RADS level nodule reported [facility], , 01/10/2025 6:37 PM
== END | disposition home or self-care (01) ==
LOC: RADUSWWP 15:35
PROVIDERS: ATTEND Family Medicine
DX: E04.2 Nontoxic multinodular goiter (principal); E07.9 Disorder of thyroid, unspecified
CPT/HCPCS: 76536